=== PATIENT | female | born 1975 | race Caucasian/White ===

== ENCOUNTER 2016-12-21 06:50 | Day surgery (SDC) | payer BC ==
--- NOTE | ~2016-12-21 | EGD ---
EGD REPORT [facility] [address] [id number] NAME: FRACISCO CHENG : 75 STATUS : REG [facility] PAT#: [id number] AGE: 41 ADM/REG DATE : 12/21/16 MR#: [id number] REPORT SERV DATE: 12/21/16 DICTATED BY: JAVIER ISSA. DATE: 12/21/16 REPORT STATUS : Draft TRANSCRIBED BY: [facility] DATE: 12/21/16 [facility] Patient Name: Fracisco Cheng Date of : 1975 Attending MD: JAVIER ISSA MD Procedure Date No Time: 12/21/2016 Procedure: Colonoscopy Indications: Hematochezia; RLQ pain; on estrogen. Patient Profile: Informed consent was obtained from the patient by me prior to the procedure. Risks, benefits, and alternatives were discussed including the risk of bleeding, perforation, infection, reaction to medicine, missed lesion, and cardiopulmonary complications. Medicines: Monitored Anesthesia Care Complications: No immediate complications. Procedure: Pre-Anesthesia Assessment: - ASA Grade Assessment: II - A patient with mild systemic disease. After I obtained informed consent, the scope was passed under direct vision. Throughout the procedure, the patient's blood pressure, pulse, and oxygen saturations were monitored continuously. The PCF [id number] was introduced through the anus and advanced to the cecum, identified by appendiceal orifice and ileocecal valve. The colonoscope was slowly withdrawn with careful examination all mucosal surfaces including specific attention around flexures and tip deflection behind folds; retroflexion performed in rectum. The colonoscopy was performed without difficulty. The patient tolerated the procedure well. The quality of the bowel preparation was adequate. The ileocecal valve, appendiceal orifice, terminal ileum and rectum were photographed. Findings: The terminal ileum appeared normal. The descending colon and ascending colon appeared normal. Biopsies were taken with a cold forceps for histology. A sessile polyp was found in the rectum. The polyp was 5 mm in size. The polyp was removed with a cold biopsy forceps. Resection and retrieval were complete. Impression: - The examined portion of the ileum was normal. - The descending colon and ascending colon are normal. Biopsied. - One 5 mm polyp in the rectum. Resected and retrieved. EGD REPORT [address] [address] NAME: FRACISCO CHENG : [birth year] STATUS : REG [facility]#: [id number] AGE: 41 ADM/REG DATE : 12/21/16 MR#: [id number] REPORT SERV DATE: 12/21/16 DICTATED BY: JAVIER ISSA DATE: 12/21/16 REPORT STATUS : Draft TRANSCRIBED BY: [facility] DATE: 12/21/16 Recommendation: - Patient has a contact number available for emergencies. The signs and symptoms of potential delayed complications were discussed with the patient. Return to normal activities tomorrow. Written discharge instructions were provided to the patient. - Regular diet. - Continue present medications. - Await pathology results. - Repeat colonoscopy for surveillance based on pathology results. - Suspect perianal source of bleeding, now stopped. Procedure Code(s): --- Professional --- 81614, Colonoscopy, flexible, proximal to splenic flexure; with biopsy, single or multiple Diagnosis Code(s): --- Professional --- K62.1, Rectal polyp K92.1, Melena CPT copyright 2013 [employer]. All rights reserved. The codes documented in this report are preliminary and upon management analyst review may be revised to meet current compliance requirements. JAVIER ISSA MD 12/21/2016 7:51 AM This report has been signed electronically. Number of Addenda: 0 Note Initiated On: 12/21/2016 7:19 AM Scope Withdrawal Time 0 hours 9 minutes 21 seconds [id number] [id number]
[~2016-12-21 06:50] MED LIST: BENTYL10 PO; ESTRACE1 MG PO; KLONO5 PO; LINZESS 290 M290 MCG PO; LORTAB 5 PO; MIRALAXPKT PO; MOBIC7.5 PO; PROZAC40 MG PO; SAVELLA50 MG PO; TOPAMAX100 PO; TYLENOL PM PO; [UNRECOGNIZED DRUG - OTHER] OR
== END 2016-12-21 23:59 | disposition home or self-care (01) ==
LOC: DMU 06:50
PROVIDERS: Internal Medicine Gastroenterology
PROC: 0DBM8ZX Excision of Descending Colon, Via Natural or Artificial Opening Endoscopic, Diagnostic (ICD-10-PCS; 2016-12-21)
PROC: 0DBP8ZX Excision of Rectum, Via Natural or Artificial Opening Endoscopic, Diagnostic (ICD-10-PCS; 2016-12-21)
PROC: 0DBK8ZX Excision of Ascending Colon, Via Natural or Artificial Opening Endoscopic, Diagnostic (ICD-10-PCS; principal; 2016-12-21 10:00)
DX: K62.1 Rectal polyp (principal); Z79.818 Long term (current) use of other agents affecting estrogen receptors and estrogen levels; Z79.899 Other long term (current) drug therapy
CPT/HCPCS: 82784; 83516; 88305; J2250